=== PATIENT | female | born 1960 | race Caucasian/White ===

== ENCOUNTER → 2016-05-28 | Outpatient (CLI) | payer OTHER ==
[~2016-05-28] MED LIST: ABILIFY5 MG; ABILIFY5 MG PO; ALENDRONATE SOD70 MG PO; ALTOPREV40 MG PO; AMBIEN5 MG PO; AMLODIPINE BESYL5 MG PO; ASPIRIN81 M2 PO; ATROVENT H200 INHALA IH; AZITHROMYCIN500 M1 PO; Aspirin E.C. PO; BACTRIM,SEPT1 TABLE1 PO; BENADRYL25 MG PO; BENADRYL50 MG PO; BUPROPION XL150 MG PO; BUPROPION XL300 MG PO; BUTALB-ACETAMI1 EAC2 PO; BUTALB-CAFF-AC1 EACH PO; CALCITRIOL0.25 MCG PO; CARVEDILOL12.5 MG PO; CARVEDILOL25 MG PO; CARVEDILOL3.125 MG PO; CARVEDILOL6.25 MG PO; CEFUROXIME500 MG PO; CIPRO500 MG PO; COREG12.5 M1 PO; COREG6.25 M1 PO; CRESTOR10 MG PO; CYCLOSPORINE100 M2 PO; CYMBALTA60 MG; CYMBALTA60 MG PO; Colace PO; DOCUSATE SODIU100 MG PO; DRISDOL50000 UNIT PO; DULOXETINE HCL60 MG PO; ENDOCET 5-3251 EACH PO; ERGOCALCIF50000 UNIT PO; FAMOTIDINE40 MG PO; FERROUS SULFAT325 MG PO; FIORICET,ESG1 TABLET PO; FUROSEMIDE20 MG PO; FUROSEMIDE40 MG PO; GABAPENTIN300 MG; GABAPENTIN300 MG PO; Habitrol,Nicoderm CQ TD; LASIX20 MG PO; LEXAPRO20 MG PO; LIDOCAINE700 MG TD; LIDODERM 5% P1 PATCH TD; LISINOPRIL2.5 MG PO; LISINOPRIL20 MG PO; LISINOPRIL40 MG PO; LOPRESSOR50 MG PO; LOW DOSE ASPIRI81 M1 PO; LYRICA75 MG PO; Levaquin PO; MOTRIN; MOTRIN800 MG PO; NEXIUM20 MG PO; NORVASC5 MG PO; Naprosyn PO; OMEPRAZOLE20 MG PO; PERCOCET 5/31 TABLET PO; PRAVASTATIN SOD40 MG PO; PREDNISONE20 MG PO; PRILOSEC20 MG PO; PROAIR HFA8.5 GM IH; PROTONIX40 MG PO; PriLOSEC PO; RITUXAN10 MG/ML IV; ROBITUSSIN AC,T10 ML PO; Remove Nicotine Patc TD; SIMVASTATIN40 MG PO; SINGULAIR10 MG PO; SPIRIVA1 INHALATI IH; SPIRONOLACTONE25 MG PO; SYMBICORT60 INHALAT IH; Spiriva IH; TOPAMAX50 MG PO; TOPIRAMATE50 MG PO; TRAZODONE HCL100 MG PO; VALIUM2 MG PO; VITAMIN B-6100 MG PO; VITAMIN D250000 UNIT PO; WELLBUTRIN XL300 MG PO; ZOCOR40 MG PO; ZOLPIDEM TARTRAT5 MG PO; ZYRTEC10 M3 PO; Zestril,Prinivil PO; [UNRECOGNIZED DRUG - REMARK]; predniSONE PO
== END | disposition home or self-care (01) ==
LOC: RAD 13:51
DX: N28.89 Other specified disorders of kidney and ureter (principal); R31.9 Hematuria, unspecified
CPT/HCPCS: 76770

== ENCOUNTER 2016-07-19 15:38 | Observation (INO) | payer OTHER ==
[~2016-07-19] VITALS: Ht 167.6 cm; Wt 88.6 kg
[2016-07-19 16:39] LABS: EOSINOPHIL (%) 0.4 % (0-5); HEMATOCRIT 35.4 % (36.0-46.0); LYMPHOCYTE COUNT 1.4 K/uL (1.0-2.8); MCH 26.8 PG (29.0-34.0); MCHC 31.9 G/DL (30.0-36.0); MCV 83.9 FL (83-99); MEAN PLAT.VOLUME 12.6 uM^3 (9.5-12.4); MONOCYTE (%) 4.7 % (3-12); MONOCYTE COUNT 0.3 K/uL (0-0.8); NEUTROPHIL (%) 68.1 % (45-76); NEUTROPHIL COUNT 3.6 K/uL (1.8-6.4); PLATELET COUNT 183 K/uL (156-360); RBC DIS.WIDTH-CV 14.6 % (11.8-14.6); RBC DIS.WIDTH-SD 44.2 % (39-53); RED BLOOD COUNT 4.22 M/uL (3.80-5.20); WHITE BLOOD COUNT 5.3 K/uL (4.1-10.2)
[2016-07-19 16:51] LABS: CHLORIDE 115 mEq/L (99-109); POTASSIUM 4.5 mEq/L (3.7-5.4); SODIUM 141 mEq/L (136-147)
[2016-07-19 16:54] LABS: GLUCOSE 136 mg/dL (70-99)
[2016-07-19 16:55] LABS: ANION GAP 7 MEQ/L (2-14)
[2016-07-19 16:56] LABS: TOTAL BILIRUBIN 0.2 mg/dL (0.0-1.0)
[2016-07-19 16:57] LABS: ALKALINE PHOSPHATASE 60 IU/L (3-129); GFR ESTIMATE (CALCULATED) 20 mL/min/
[2016-07-19 16:58] LABS: UREA NITROGEN (BUN) 42 mg/dL (9-23)
[2016-07-19 17:03] LABS: TROP-I INTERPRETATION NEGATIVE; TROPONIN-I < 0.01 ng/mL (0.0-0.30)
[2016-07-19] MEDS ORDERED: PRINIVIL20 MG PO (18:08)
[2016-07-19] MEDS ORDERED: CELEXA40 MG PO (18:09)
[2016-07-19] MEDS ORDERED: VITAMIN D2000 UNIT PO (18:13)
[2016-07-19] MEDS ORDERED: ROCALTROL0.25 MCG PO (18:13)
[2016-07-19 23:22] LABS: TROP-I INTERPRETATION NEGATIVE; TROPONIN-I < 0.01 ng/mL (0.0-0.30)
[2016-07-19 23:23] VITALS: BP 118/59
[2016-07-20 03:47] VITALS: BP 149/86
[2016-07-20 05:50] LABS: TROP-I INTERPRETATION NEGATIVE; TROPONIN-I < 0.01 ng/mL (0.0-0.30)
[2016-07-20 05:56] LABS: ANION GAP 7 MEQ/L (2-14); CHLORIDE 116 MEQ/L (99-109); GFR ESTIMATE (CALCULATED) 24 mL/min/; POTASSIUM 4.7 MEQ/L (3.7-5.4); SAMPLE HEMOLYSIS CHECK 0; SAMPLE ICTERIC CHECK 0; SAMPLE LIPEMIA CHECK 0; SODIUM 142 MEQ/L (136-147); UREA NITROGEN (BUN) 40 mg/dL (9-23)
[2016-07-20 05:57] LABS: GLUCOSE 87 mg/dL (70-99)
[2016-07-20 11:53] VITALS: BP 138/74
== END 2016-07-20 15:12 | disposition home or self-care (01) ==
LOC: EME 15:38 → 5WEST 18:42 → EDOF 18:42 → 5WEST 19:49
PROVIDERS: Emergency Medicine; Family Medicine
DX: R55 Syncope and collapse (principal); E86.0 Dehydration; I95.1 Orthostatic hypotension; J44.1 Chronic obstructive pulmonary disease with (acute) exacerbation; I42.9 Cardiomyopathy, unspecified; E78.5 Hyperlipidemia, unspecified; I12.9 Hypertensive chronic kidney disease with stage 1 through stage 4 chronic kidney disease, or unspecified chronic kidney disease; N18.3 Chronic kidney disease, stage 3 (moderate)
CPT/HCPCS: 71020; 80048; 80053; 83880; 84484; 85025; 93005; 93306; 99281; 99285; G0378; J1644; J7030; J7040

== ENCOUNTER 2017-01-16 17:19 | Emergency (ER) | payer SELFPAY ==
[~2017-01-16] VITALS: Ht 162.6 cm; Wt 95.0 kg
[~2017-01-16 17:19] MED LIST changes: +CELEXA40 MG PO; +PRINIVIL20 MG PO; +ROCALTROL0.25 MCG PO; +VITAMIN D2000 UNIT PO
[2017-01-16 17:42] VITALS: BP 104/67
[2017-01-16] MEDS ORDERED: LORTAB 5-325 M1 EACH PO (19:00)
== END 2017-01-16 19:25 | disposition home or self-care (01) ==
LOC: EME 17:19
PROC: 2W3QX1Z Immobilization of Right Lower Leg using Splint (ICD-10-PCS; principal; 2017-01-16)
DX: S82.491A Other fracture of shaft of right fibula, initial encounter for closed fracture (principal); X50.1XXA Overexertion from prolonged static or awkward postures, initial encounter; G89.29 Other chronic pain; M54.2 Cervicalgia; Z79.891 Long term (current) use of opiate analgesic; Z87.891 Personal history of nicotine dependence
CPT/HCPCS: 73610; 99281; 99283

== ENCOUNTER 2017-01-24 18:37 | Emergency (ER) | payer SELFPAY ==
[~2017-01-24] VITALS: Ht 167.6 cm; Wt 98.7 kg
[~2017-01-24 18:37] MED LIST changes: +LORTAB 5-325 M1 EACH PO
[2017-01-24 21:10] VITALS: BP 119/78
== END 2017-01-24 21:16 | disposition home or self-care (01) ==
LOC: EME 18:37
DX: S92.901D Unspecified fracture of right foot, subsequent encounter for fracture with routine healing (principal); E78.5 Hyperlipidemia, unspecified; I10 Essential (primary) hypertension; Z87.891 Personal history of nicotine dependence
CPT/HCPCS: 99281; 99283

== ENCOUNTER 2017-09-20 14:24 | Emergency (ER) | payer SELFPAY ==
[~2017-09-20] VITALS: Ht 167.6 cm; Wt 115.8 kg
[2017-09-20 17:00] LABS: HEMATOCRIT 29.2 % (36.0-46.0); HEMOGLOBIN 9.5 G/DL (11.9-15.5); MCH 28.2 PG (29.0-34.0); MCHC 32.5 G/DL (30.0-36.0); MCV 86.6 FL (83-99); PLATELET COUNT 151 K/uL (156-360); RBC DIS.WIDTH-CV 13.7 % (11.8-14.6); RBC DIS.WIDTH-SD 43.1 % (39-53); RED BLOOD COUNT 3.37 M/uL (3.80-5.20); WHITE BLOOD COUNT 4.1 K/uL (4.1-10.2)
[2017-09-20 17:25] LABS: ALBUMIN 2.9 G/DL (3.2-4.8); CHLORIDE 113 MEQ/L (99-109); SODIUM 141 MEQ/L (136-147); TOTAL BILIRUBIN 0.3 MG/DL (0.0-1.0)
[2017-09-20 17:30] LABS: ALKALINE PHOSPHATASE 53 IU/L (3-129); ALT (GPT) 8 IU/L (3-49); AST (GOT) 13 IU/L (2-34); CREATININE 2.4 MG/DL (0.6-1.3); GFR ESTIMATE (CALCULATED) 22 mL/min/; GLUCOSE 86 mg/dL (70-99); TOTAL PROTEIN 5.3 G/DL (6.4-8.3); UREA NITROGEN (BUN) 41 mg/dL (9-23)
[2017-09-20 20:09] VITALS: BP 131/78
== END 2017-09-20 20:11 | disposition home or self-care (01) ==
LOC: EXP 14:24 → EME 14:24 → EXP 20:11
PROVIDERS: Nurse Practitioner Family
DX: R60.0 Localized edema (principal); R79.89 Other specified abnormal findings of blood chemistry; N19 Unspecified kidney failure; I45.4 Nonspecific intraventricular block; I45.81 Long QT syndrome; R94.31 Abnormal electrocardiogram [ECG] [EKG]; I10 Essential (primary) hypertension; I50.9 Heart failure, unspecified; J44.9 Chronic obstructive pulmonary disease, unspecified; K21.9 Gastro-esophageal reflux disease without esophagitis; G43.909 Migraine, unspecified, not intractable, without status migrainosus; F41.9 Anxiety disorder, unspecified; F32.9 Major depressive disorder, single episode, unspecified; F31.9 Bipolar disorder, unspecified; Z87.891 Personal history of nicotine dependence; Z88.8 Allergy status to other drugs, medicaments and biological substances
CPT/HCPCS: 71046; 80053; 83880; 85027; 93005; 99281; 99284

== ENCOUNTER 2017-10-14 09:58 | Inpatient (IN) | payer SELFPAY ==
[~2017-10-14] VITALS: Ht 172.7 cm; Wt 113.3 kg
[~2017-10-14 09:58] MED LIST changes: -COREG12.5 M1 PO; -TRAZODONE HCL100 MG PO; +TRAZODONE HCL50 MG PO
[2017-10-14 10:54] LABS: HEMOGLOBIN 10.8 G/DL (11.9-15.5); MCH 27.6 PG (29.0-34.0); MCHC 32.7 G/DL (30.0-36.0); MCV 84.4 FL (83-99); PLATELET COUNT 165 K/uL (156-360); RBC DIS.WIDTH-CV 13.6 % (11.8-14.6); RED BLOOD COUNT 3.91 M/uL (3.80-5.20); WHITE BLOOD COUNT 11.1 K/uL (4.1-10.2)
[2017-10-14 11:02] LABS: ALBUMIN 3.1 g/dL (3.2-4.8)
[2017-10-14 11:03] LABS: CHLORIDE 109 mEq/L (99-109); POTASSIUM 4.8 mEq/L (3.7-5.4); SODIUM 140 mEq/L (136-147)
[2017-10-14 11:05] LABS: GLUCOSE 117 mg/dL (70-99); TOTAL PROTEIN 6.1 g/dL (6.4-8.3)
[2017-10-14 11:07] LABS: TOTAL BILIRUBIN 0.4 mg/dL (0.0-1.0)
[2017-10-14 11:08] LABS: ALKALINE PHOSPHATASE 71 IU/L (3-129)
[2017-10-14 11:09] LABS: GFR ESTIMATE (CALCULATED) 14 mL/min/
[2017-10-14 11:10] LABS: AST (GOT) 16 IU/L (2-34)
[2017-10-14 11:11] LABS: CREATININE 3.5 mg/dL (0.6-1.3); UREA NITROGEN (BUN) 53 mg/dL (9-23)
[2017-10-14 11:12] LABS: ALT (GPT) 10 IU/L (3-49)
[2017-10-14] MEDS ORDERED: FLONASE16 G1 BOTH NARES (12:22)
[2017-10-14] MEDS ORDERED: PERCOCET 10/1 TABLET PO (12:23)
[2017-10-14] MEDS ORDERED: FERROUS SULFAT325 MG PO (12:25)
[2017-10-14] MEDS ORDERED: LASIX40 MG PO (12:25)
[2017-10-14] MEDS ORDERED: AMITIZA24 MICROGR PO (12:25)
[2017-10-14] MEDS ORDERED: LYRICA75 MG PO (12:25)
[2017-10-14] MEDS ORDERED: NORVASC5 MG PO (12:26)
[2017-10-14] MEDS ORDERED: TUMS500 MG PO (12:27)
[2017-10-14] MEDS ORDERED: SUPER CALCIUM600 MG PO (12:27)
[2017-10-14 15:14] VITALS: BP 107/59
[2017-10-14 16:09] LABS: APPEARANCE SL.HAZY ((CLEAR)); BILIRUBIN NEGATIVE; BLOOD NEGATIVE; COLOR YELLOW ((YELLOW)); GLUCOSE (STRIP) NEGATIVE; KETONES NEGATIVE; LEUKOCYTES NEGATIVE; NITRITE NEGATIVE; PROTEIN (STRIP) >=500; SPECIFIC GRAVITY 1.026 (1.000-1.030); UROBILINOGEN 0.2 MG/DL (0.2-1.0)
[2017-10-14 16:30] LABS: BACTERIA RARE /HPF; EPITHELIAL CELLS 1+ /HPF; MUCUS TRACE /LPF; RED BLOOD CELLS 0-5 /HPF (0-5); UCUL ADDED? NO; WHITE BLOOD CELLS 0-5 /HPF (0-5)
[2017-10-14 20:13] VITALS: BP 104/62
[2017-10-15] VITALS (7 sets, daily range): BP systolic 115–144; BP diastolic 58–78
[2017-10-15 05:45] LABS: HEMATOCRIT 28.7 % (36.0-46.0); INTER. NORMALIZED RATIO 1.2; MCH 27.1 PG (29.0-34.0); MCHC 31.4 G/DL (30.0-36.0); MCV 86.4 FL (83-99); PLATELET COUNT 146 K/uL (156-360); RBC DIS.WIDTH-CV 13.6 % (11.8-14.6); RBC DIS.WIDTH-SD 42.3 % (39-53); RED BLOOD COUNT 3.32 M/uL (3.80-5.20); WHITE BLOOD COUNT 7.3 K/uL (4.1-10.2)
[2017-10-15 06:17] LABS: ALBUMIN 3.1 G/DL (3.2-4.8); CHLORIDE 110 MEQ/L (99-109); GFR ESTIMATE (CALCULATED) 12 mL/min/; GLUCOSE 99 mg/dL (70-99); PHOSPHORUS 5.5 mg/dL (2.5-4.9); POTASSIUM 4.1 MEQ/L (3.7-5.4); SODIUM 143 MEQ/L (136-147); UREA NITROGEN (BUN) 55 mg/dL (9-23)
[2017-10-15 10:31] LABS: IRON 19 MCG/DL (35-150); TRANSFERRIN (TIBC) 173.1 mg/dL (215-380); TRANSFERRIN SATUR. 11 % (20-55)
[2017-10-16 03:51] VITALS: BP 120/73
[2017-10-16 06:23] LABS: ALBUMIN 2.9 G/DL (3.2-4.8); CHLORIDE 111 MEQ/L (99-109); CREATININE 3.7 MG/DL (0.6-1.3); GFR ESTIMATE (CALCULATED) 14 mL/min/; GLUCOSE 101 mg/dL (70-99); POTASSIUM 4.3 MEQ/L (3.7-5.4); SODIUM 141 MEQ/L (136-147); UREA NITROGEN (BUN) 48 mg/dL (9-23)
[2017-10-16 07:43] VITALS: BP 125/72
[2017-10-16 11:15] VITALS: BP 153/72
[2017-10-16 15:53] VITALS: BP 132/83
[2017-10-16 23:49] VITALS: BP 134/63
[2017-10-17 05:23] LABS: BASOPHIL (%) 0.5 % (0-1); EOSINOPHIL (%) 0.7 % (0-5); HEMOGLOBIN 9.2 G/DL (11.9-15.5); IMMATURE GRANULOCYTE (%) 0.5 % (0.0-0.7); LYMPHOCYTE (%) 28.7 % (15-42); LYMPHOCYTE COUNT 1.2 K/uL (1.0-2.8); MCH 27.3 PG (29.0-34.0); MCHC 31.7 G/DL (30.0-36.0); MCV 86.1 FL (83-99); MONOCYTE (%) 10.1 % (3-12); MONOCYTE COUNT 0.4 K/uL (0-0.8); NEUTROPHIL (%) 59.5 % (45-76); NEUTROPHIL COUNT 2.4 K/uL (1.8-6.4); PLATELET COUNT 149 K/uL (156-360); RBC DIS.WIDTH-CV 13.6 % (11.8-14.6); RBC DIS.WIDTH-SD 42.5 % (39-53); RED BLOOD COUNT 3.37 M/uL (3.80-5.20)
[2017-10-17 05:56] LABS: ALBUMIN 2.9 G/DL (3.2-4.8); CHLORIDE 110 MEQ/L (99-109); CREATININE 3.7 MG/DL (0.6-1.3); GFR ESTIMATE (CALCULATED) 14 mL/min/; GLUCOSE 84 mg/dL (70-99); PHOSPHORUS 4.9 mg/dL (2.5-4.9); POTASSIUM 4.3 MEQ/L (3.7-5.4); SODIUM 140 MEQ/L (136-147); UREA NITROGEN (BUN) 43 mg/dL (9-23)
[2017-10-17 07:06] VITALS: BP 135/83
[2017-10-17 15:17] VITALS: BP 138/76
[2017-10-18 00:10] VITALS: BP 134/63
[2017-10-18 06:39] LABS: ALBUMIN 2.8 G/DL (3.2-4.8); CHLORIDE 113 MEQ/L (99-109); CREATININE 3.5 MG/DL (0.6-1.3); GFR ESTIMATE (CALCULATED) 14 mL/min/; GLUCOSE 96 mg/dL (70-99); PHOSPHORUS 4.4 mg/dL (2.5-4.9); POTASSIUM 4.6 MEQ/L (3.7-5.4); SODIUM 142 MEQ/L (136-147); UREA NITROGEN (BUN) 38 mg/dL (9-23)
[2017-10-18 07:17] VITALS: BP 131/65
[2017-10-18 15:21] VITALS: BP 134/59
[2017-10-18 23:17] VITALS: BP 141/78
[2017-10-19 06:58] LABS: CHLORIDE 113 MEQ/L (99-109); GFR ESTIMATE (CALCULATED) 17 mL/min/; GLUCOSE 89 mg/dL (70-99); POTASSIUM 4.6 MEQ/L (3.7-5.4); SODIUM 141 MEQ/L (136-147); UREA NITROGEN (BUN) 36 mg/dL (9-23)
[2017-10-19 08:02] VITALS: BP 134/73
[2017-10-19] MEDS ORDERED: LYRICA75 MG PO (10:00)
[2017-10-19 10:19] LABS: APPEARANCE SL.HAZY ((CLEAR)); BILIRUBIN NEGATIVE; BLOOD NEGATIVE; COLOR YELLOW ((YELLOW)); GLUCOSE (STRIP) 50; KETONES NEGATIVE; LEUKOCYTES NEGATIVE; NITRITE NEGATIVE; PROTEIN (STRIP) >=500; SPECIFIC GRAVITY 1.023 (1.000-1.030); UROBILINOGEN 0.2 MG/DL (0.2-1.0)
[2017-10-19 10:30] LABS: BACTERIA NONE SEEN /HPF; EPITHELIAL CELLS RARE /HPF; MUCUS NONE SEEN /LPF; RED BLOOD CELLS 0-5 /HPF (0-5); UCUL ADDED? YES
[2017-10-19] MEDS ORDERED: LIDOCAINE20 MG/1 M5 PO (16:19)
== END 2017-10-19 17:21 | disposition home or self-care (01) | DRG 682 ==
LOC: EME 09:58 → EDOF 12:48 → 5SOUTH 12:48 → ENRESERV 12:49 → 5SOUTH 14:42 → ENPENDDIS 10-19 14:22 → 5SOUTH 10-19 17:21
PROVIDERS: Hospitalist; Internal Medicine; Nurse Practitioner Family; Physician Assistant
DX: N17.0 Acute kidney failure with tubular necrosis (principal); G92 Toxic encephalopathy; J18.9 Pneumonia, unspecified organism; E87.2 Acidosis; F31.30 Bipolar disorder, current episode depressed, mild or moderate severity, unspecified; I50.42 Chronic combined systolic (congestive) and diastolic (congestive) heart failure; I13.2 Hypertensive heart and chronic kidney disease with heart failure and with stage 5 chronic kidney disease, or end stage renal disease; I42.9 Cardiomyopathy, unspecified; N18.5 Chronic kidney disease, stage 5; K76.0 Fatty (change of) liver, not elsewhere classified; E66.01 Morbid (severe) obesity due to excess calories; Z87.891 Personal history of nicotine dependence; Z90.710 Acquired absence of both cervix and uterus; N25.81 Secondary hyperparathyroidism of renal origin; D63.1 Anemia in chronic kidney disease; E78.5 Hyperlipidemia, unspecified; G89.29 Other chronic pain; E83.39 Other disorders of phosphorus metabolism; F41.0 Panic disorder [episodic paroxysmal anxiety]; J43.9 Emphysema, unspecified; K21.9 Gastro-esophageal reflux disease without esophagitis; N28.1 Cyst of kidney, acquired; B00.1 Herpesviral vesicular dermatitis; N02.2 Recurrent and persistent hematuria with diffuse membranous glomerulonephritis; N04.9 Nephrotic syndrome with unspecified morphologic changes; T50.2X5A Adverse effect of carbonic-anhydrase inhibitors, benzothiadiazides and other diuretics, initial encounter; Z87.441 Personal history of nephrotic syndrome; F41.9 Anxiety disorder, unspecified; I95.9 Hypotension, unspecified; M54.5 Low back pain; Z68.37 Body mass index [BMI] 37.0-37.9, adult; Z82.3 Family history of stroke; Z82.49 Family history of ischemic heart disease and other diseases of the circulatory system; Z83.3 Family history of diabetes mellitus
CPT/HCPCS: 71046; 76770; 80048; 80053; 80069; 81003; 82436; 82570; 83540; 83605; 84156; 84300; 84466; 84540; 85025; 85027; 85610; 87040; 87070; 87086; 87205; 87449; 93005; 99281; 99285; J0456; J0696; J1644; J1756; J7030; J7050; P9047

== ENCOUNTER → 2017-12-13 | Outpatient (CLI) | payer SELFPAY ==
[~2017-12-13] MED LIST changes: +AMITIZA24 MICROGR PO; +FLONASE16 G1 BOTH NARES; +LASIX40 MG PO; +LIDOCAINE20 MG/1 M5 PO; +PERCOCET 10/1 TABLET PO; +SUPER CALCIUM600 MG PO; +TUMS500 MG PO
== END | disposition home or self-care (01) ==
LOC: RAD 10:42
DX: J18.9 Pneumonia, unspecified organism (principal)
CPT/HCPCS: 71046